=== PATIENT | male | born 1970 ===

== ENCOUNTER → 2018-05-05 22:14 | Outpatient (REF) | payer OTHER, SELFPAY ==
[2018-05-05 23:31] LABS: Add Manual Diff / Slide Review NO; Basophils Absolute Auto 100 /uL (0-100); Basophils Percent Auto 0.8 % (0-2); Eosinophils Absolute Auto 100 /uL (0-450); Eosinophils Percent Auto 1.2 % (2-4); Hematocrit 49.7 % (41-53); Hemoglobin 16.7 g/dL (13.5-17.5); Lymphocytes Absolute Auto 2000 /uL (1100-4500); Lymphocytes Percent Auto 24.8 % (25-40); Mean Corpuscular HGB Conc 33.6 % (30-36); Mean Corpuscular Volume 89.2 fL (80-100); Monocytes Absolute Auto 600 /uL (0-900); Monocytes Percent Auto 7.9 % (3-14); Neutrophils Absolute Auto 5200 /uL (1500-7000); Neutrophils Percent Auto 65.3 % (50-75); Platelet Count 225 X10^3/uL (150-400); Red Blood Cell Count 5.58 X10^6/uL (4.5-5.9); Red Cell Distribution Width 13.2 % (11.6-14.8)
[2018-05-07 17:01] LABS: PSA Total 0.58 ng/mL (< 4.01)
[2018-05-07 20:12] LABS: Estradiol 17 pg/mL (< 40)
[2018-05-08 17:00] LABS: Sex Hormone Binding Globulin 32 nmol/L (10-50)
[2018-05-11 13:38] LABS: Testosterone Free 29.7
[2018-05-11 13:39] LABS: Testosterone Total 244
== END ==
LOC: LAB 22:14
PROVIDERS: Visit Provider Physician Assistant
DX: E29.1 Testicular hypofunction (principal); Z13.89 Encounter for screening for other disorder; E34.9 Endocrine disorder, unspecified
CPT/HCPCS: 36415; 82670; 84153; 84154; 84270; 84402; 84403; 85025